=== PATIENT | female | born 1995 | race Caucasian/White ===

== ENCOUNTER 2023-12-01 15:30 | Emergency (ER) | payer MEDICAID, OTHER ==
[~2023-12-01] VITALS: Ht 154.9 cm; Wt 77.4 kg
[2023-12-01] MEDS: SODIUM CHLORIDE 0.9% 1,000 ML IV ONE (17:12)
[2023-12-01] MEDS: ONDANSETRON HCL 4 MG/2 ML VIAL IV ONE (17:14)
[2023-12-01 17:35] LABS: Chloride 108 mmol/L (98-107); Potassium 3.5 mmol/L (3.5-5.1); Sodium 140 mmol/L (136-145)
[2023-12-01 17:36] LABS: Anion Gap 11 (5-15); Calcium 10.3 mg/dL (8.7-10.4); Carbon Dioxide 21 mmol/L (20-30)
[2023-12-01 17:41] LABS: BUN/Creatinine Ratio 13.4 (10.0-20.0); Blood Urea Nitrogen 9 mg/dL (9-23); Glucose 99 mg/dL (74-106)
[2023-12-01 18:30] VITALS: BP 139/58; TEMP 97.4
[2023-12-01 18:31] VITALS: PULSE 71; RESP 16; O2SAT 98
== END 2023-12-01 18:44 | disposition home or self-care (01) ==
LOC: ER 15:30
DX: O21.0 Mild hyperemesis gravidarum (principal); R10.2 Pelvic and perineal pain; O23.41 Unspecified infection of urinary tract in pregnancy, first trimester; Z3A.08 8 weeks gestation of pregnancy
CPT/HCPCS: 36415; 76801; 80048; 84702; 96361; 96374; 99285; J2405; J7030

== ENCOUNTER 2024-05-26 20:49 | Emergency (ER) | payer MEDICAID ==
[~2024-05-26] VITALS: Ht 152.4 cm; Wt 80.9 kg
--- NOTE | 2024-05-26 21:34 | ED.PDOC ---
History of Present Illness HPI Comments 29-year-old female who came to ER for flu-like symptoms. Patient is a , approximately 34 weeks . States for the past 2 days she has been having flu-like symptoms, with fever (102 F), chills, myalgia, weakness, cough, nausea, vomiting. Patient is self-medicated Tylenol providing temporary relief. Patient denies any lower abdominal cramping pain or vaginal bleeding. Patient was tachycardic at arrival. Chief Complaint: Flu-like Time Seen by MD: 21:34 Reviewed Notes: Nurses Notes Allergies: Coded Allergies: Penicillins (Verified Allergy, Unknown, 05/26/24) Information Source: Patient Mode of Arrival: Ambulatory Severity: Moderate Timing: Days Duration: Intermittent Prehospital treatment: None Past Medical History PAST MEDICAL HISTORY: Denies Past Medical History (Other): Patient states she is currently 34 weeks . Surgical History: Denies all surgeries EDGE STAINER History: No Pertinent EDGE STAINER History 5 Para 2 Family History Family History: Family hx of DM Social History Smoker: Non-Smoker Alcohol: Denies ETOH Use Drugs: Denies Drug Use Lives In: Home Constitutional: reports: chills, fatigue, fever; denies: diaphoresis, malaise, sweats, weakness, others EENTM: denies: blurred vision, double vision, ear bleeding, ear discharge, ear drainage, ear pain, ear ringing, eye pain, eye redness, hearing loss, mouth pain, mouth swelling, nasal discharge, nose bleeding, nose congestion, nose pain, photophobia, tearing, throat pain, throat swelling, voice changes, others Respiratory: reports: cough; denies: hemoptysis, orthopnea, SOB at rest, shortness of breath, SOB with excertion, stridor, wheezing, others Cardiovascular: denies: chest pain, dizzy spells, diaphoresis, Dyspnea on exertion, edema, irregular heart beat, left arm pain, lightheadedness, palpitations, PND, syncope, others Gastrointestinal: reports: nausea, vomiting; denies: abdomen distended, abdominal pain, blood streaked bowels, constipated, diarrhea, dysphagia, difficulty swallowing, hematemesis, melena, poor appetite, poor fluid intake, rectal bleeding, rectal pain, others Genitourinary: denies: abnormal vagina bleeding, burning, dyspareunia, dysuria, flank pain, frequency, hematuria, incontinence, pain, , vagina discharge, urgency, others Neurological: denies: dizziness, fainting, headache, left sided numbness, left sided weakness, numbness, paresthesia, pre-existing deficit, right sided numbness, right sided weakness, seizure, speech problems, tingling, tremors, weakness, others Musculoskeletal: denies: back pain, gout, joint pain, joint swelling, muscle pain, muscle stiffness, neck pain, others Integumetry: denies: bruises, change in color, change in hair/nails, dryness, laceration, lesions, lumps, rash, wounds, others Allergic/Immunocompromised: denies: Difficulty Healing, Frequent Infections, Hives, Itching, others Hematologic/Lymphatic: denies: anemia, blood clots, easy bleeding, easy bruising, swollen glands, others Endocrine: denies: excessive hunger, excessive sweating, excessive thirst, excessive urination, flushing, intolerance to cold, intolerance to heat, unexplained weight gain, unexplained weight loss, others Psychiatric: denies: anxiety, bipolar disorder, depression, hopeless, panic disorder, schizophrenia, sleepless, suicidal, others Physical Exam General Appearance: Moderate Distress (Patient appears to be in moderate distress at time of evaluation.), Normal HEENT: Normal ENT Inspection, Pharynx Normal, TMs Normal Neck: Full Range of Motion, Non-Tender, Normal, Normal Inspection Respiratory: Chest Non-Tender, Lungs Clear, No Accessory Muscle Use, No Respiratory Distress, Normal Breath Sounds Cardiovascular: No Edema, No JVD, No Murmur, No Gallop, Normal Peripheral Pulses, Regular Rate/Rhythm Breast Exam: Deferred Gastrointestinal: No Organomegaly, Non Tender, No Pulsatile Mass, Normal Bowel Sounds, Soft Genitalia: Deferred Pelvic: Deferred Rectal: Deferred Extremities: No calf tenderness, Normal capillary refill, Normal inspection, Normal range of motion, Non-tender, No pedal edema Musculoskeletal : Apperance: Normal Neurologic: Alert, No Motor Deficits, Normal Affect, Normal Mood, No Sensory Deficits Cerebellar Function: Normal Reflexes: Normal Skin: Dry, Normal Color, Warm Lymphatic: No Adenopathy Was a procedure done? Was a procedure done?: No Differential Dx Considerations may include: This is a/B, COVID-19, viral gastroenteritis, UTI X-Ray, Labs, Meds, VS Vital Signs Date Time Temp Pulse Resp B/P (MAP) Pulse Ox O2 Delivery O2 Flow Rate FiO2 05/26/24 21:00 98.8 118 18 118/74 (89) 96 Lab Test 05/26/24 21:23 05/26/24 20:23 Range/Units Urine Color Yellow Yellow Urine Clarity Turbid H Clear Urine pH 6.0 5.0-9.0 Urine Specific [place] 1.030 1.001-1.035 Urine Protein 2+ H Negative Urine Ketones 4+ H Negative Urine Blood Negative Negative /uL Urine Nitrite Negative Negative Urine Bilirubin Negative Negative Urine Urobilinogen 2 H Negative mg/dL Urine Leukocyte Esterase 1+ Negative /uL Urine RBC 20 0 - 4 /hpf Urine WBC 11 0 - 5 /hpf Urine Squamous Epithelial Cells Mod <5 /hpf Urine Bacteria Few H None Seen /hpf Urine Mucus Few None Seen Urine Glucose Normal Normal mg/dL Urine Test Positive Negative Influenza Type A Antigen Positive Negative Influenza Type B Antigen Negative Negative SARS-CoV-2 Antigen (Rapid) Negative NEGATIVE X-Ray, Labs, Meds, VS Comment All laboratories studies were evaluated by me personally. Urinalysis confirmed a urinary tract infection. Swabs studies confirmed an influenza a diagnosis. Patient was given her 1st dose of antibiotics prior to discharge. Advised patient utilize Tamiflu and antibiotics as directed until completion as well as additional medication as needed. 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 Patient can utilize additional medication as needed. Patient should practice good hydration and healthy nutrition throughout illness event. Follow up with the primary care provider and art installer as scheduled. e-Prescriptions Oseltamivir Phosphate (Tamiflu) 75 Mg Cap 75 MG PO BID for 5 Days, #10 CAP Prov: MAX CAUSEY PAC 05/26/24 Acetaminophen (Acetaminophen) 500 Mg Tab 500 MG PO Q4HP PRN, #30 TAB Prov: MAX CAUSEY PAC 05/26/24 Ondansetron Odt 4MG Tab (ZOFRAN PO) 4 Mg Tb 4 MG PO Q6HP PRN, #20 TAB ODT TAB-DISSOLVE IN MOUTH, THEN SWALLOW Prov: MAX CAUSEY PAC 05/26/24 Cephalexin Monohydrate (Cephalexin) 500 Mg Cap 1 CAP PO QID for 7 Days, #28 CAP Prov: MAX CAUSEY PAC 05/26/24 Discharged With: Self, Friend Critical Care Note Critical Care Time?: No Stability Stability form required: No Heart Score Heart Score: Heart Score Response (Comments) Value History N/A 0 EKG N/A 0 Age N/A 0 Risk Factors N/A 0 Troponin N/A 0 Total 0 I personally scribed for MAX CAUSEY PAC ([email or web address]) on 05/26/24 at 21:34. Electronically submitted by Ha Jones [email or web address] MAX CAUSEY PAC May 26, 2024 21:34
[2024-05-26 21:54] LABS: Urine Bacteria FEW /hpf (None Seen); Urine Blood Negative /uL (Negative); Urine Clarity Turbid (Clear); Urine Color Yellow (Yellow); Urine Mucus FEW (None Seen); Urine Protein, UAD 2+ (Negative); Urine Urobilinogen 2 mg/dL (Negative); Urine WBC 11 /hpf (0 - 5)
[2024-05-26 22:12] LABS: COVID19 ANTIGEN SOFIA FIA NEGATIVE (NEGATIVE)
[2024-05-26 22:15] LABS: Rapid Influenza B Negative (Negative)
[2024-05-26 22:16] LABS: Rapid Influenza A Positive (Negative)
[2024-05-26] MEDS ORDERED: TAMIFLU PO (23:17)
[2024-05-26] MEDS ORDERED: ZOFR4T PO (23:17)
[2024-05-26] MEDS ORDERED: ACET500T58 PO (23:17)
[2024-05-26] MEDS ORDERED: CEPH500C PO (23:17)
[2024-05-26] MEDS: CEPHALEXIN 250 MG CAP PO ONE (23:19)
[2024-05-26] MEDS: ONDANSETRON ODT 4 MG TAB PO ONE (23:19)
[2024-05-26 23:23] VITALS: BP 120/71; PULSE 101; RESP 20; TEMP 98.3; O2SAT 98
== END 2024-05-26 23:34 | disposition home or self-care (01) ==
LOC: ER 20:49
DX: O99.513 Diseases of the respiratory system complicating pregnancy, third trimester (principal); J10.1 Influenza due to other identified influenza virus with other respiratory manifestations; O23.43 Unspecified infection of urinary tract in pregnancy, third trimester; N39.0 Urinary tract infection, site not specified; Z20.822 Contact with and (suspected) exposure to COVID-19; Z3A.34 34 weeks gestation of pregnancy; Z88.0 Allergy status to penicillin
CPT/HCPCS: 36415; 81001; 81025; 87426; 87804; 99283; Q0162